=== PATIENT | female | born 1960 | race Caucasian/White ===

== ENCOUNTER 2022-06-18 01:31 | Day surgery (SDC) | payer OTHER, SELFPAY ==
[2022-06-02 13:58] VITALS: BMI 20.9
--- NOTE | 2022-06-18 11:28 | PM.HPGS ---
History of Present Illness History of Present Illness Consent: Risks, benefits, and alternatives have been discussed and questions answered. Patient agrees to proceed with procedure. Chief complaint: neoplasm screening, family hx colon Ca Narrative: Tonya Fuller is a 62 year old female referred for colon cancer screening. She has a family history of colon cancer in her mother. Review of Systems Review of Systems: All systems reviewed & are unremarkable except as noted in HPI and below PMFSH Family History Family History Sibling Patient's sister is in good health Patient's brother is in good health Mother Carcinoma of colon Patient's mother is Father Family history of coronary artery disease Social History Social History Smoking packs per day: 1 Smoking cigarettes per day: 20.0 Years smoked: 20 Smoking pack-years: 20.00 Smoking status: Former smoker Tobacco type: cigarettes Alcohol intake: never Substance use type: does not use Living arrangements: with family Spiritual care concerns: No Meds Home Medications and Allergies Home Medications Medication Instructions Recorded Confirmed Type ezetimibe 10 mg tablet (Zetia) 10 mg PO DAILY #90 tabs 05/13/22 06/02/22 Rx Adult One Daily Multivitamin 1 tablet PO DAILY 06/02/22 06/02/22 History vitamin E 400 unit tablet 400 unit PO DAILY 06/02/22 06/02/22 History metoprolol succinate 25 mg 25 mg PO DAILY #30 tabs 06/08/22 06/09/22 Rx tablet,extended release 24 hr Allergies Allergy/AdvReac Type Severity Reaction Status Date / Time Svmygdb-JWP-HuN Reductase AdvReac Intermediate muscle Verified 06/18/22 11:44 Inhibitor aches Exam Const: General: alert Orientation/consciousness: patient oriented x3 Resp: Auscultation: clear to auscultation bilaterally Cardio: Rhythm: regular rhythm GI: GI Palp: Yes Soft to palpation and No Tenderness to palpation present (GI) Neuro: General: patient oriented x3 Assessment and Plan Assessment and plan (1) Screening for colon cancer: Code(s): Z12.11 - Encounter for screening for malignant neoplasm of colon Status: Acute Assessment and Plan: Colonoscopy with possible biopsy or polypectomy or cautery or injection of substances.
[2022-06-18 11:44] VITALS: BP 126/53; PULSE 54; RESP 18; TEMP 36.5; O2SAT 100
[2022-06-18] MEDS: LACTATED RINGERS 1,000 ML 150 ML IV CONT (11:46)
--- NOTE | 2022-06-18 12:18 | WPDANESEPPF ---
Anes - Initial Pre Proc Eval Procedure: Operation Date: 06/18/22 12:30 Proposed Procedures p Screening Colonoscopy - Timo Chavira MD Date/Time: 06/18/22 12:18 Surgeon: Timo Chavira MD Pre Op Diagnosis: neoplasm screening, family hx colon Ca Patient Data Age: 62 Gender: F Height: 1.65 m Weight: 119.6 kg Last Vital Signs Temp 36.5 C 06/18/22 11:44 Pulse 54 L 06/18/22 11:44 Resp 18 06/18/22 11:44 BP 126/53 L 06/18/22 11:44 Pulse Ox 100 06/18/22 11:44 O2 Del Method Room Air 06/18/22 11:44 Allergies Allergy/AdvReac Type Severity Reaction Status Date / Time Giljvpt-AAC-XkC Reductase AdvReac Intermediate muscle Verified 06/18/22 11:44 Inhibitor aches Home Medications Medication Instructions Recorded Confirmed Type ezetimibe 10 mg tablet (Zetia) 10 mg PO DAILY #90 tabs 05/13/22 06/02/22 Rx Adult One Daily Multivitamin 1 tablet PO DAILY 06/02/22 06/02/22 History vitamin E 400 unit tablet 400 unit PO DAILY 06/02/22 06/02/22 History metoprolol succinate 25 mg 25 mg PO DAILY #30 tabs 06/08/22 06/09/22 Rx tablet,extended release 24 hr Patient hx anesthesia problems: none Family hx anesthesia problems: none Results Review: All pre-operative results and documents have been reviewed as part of the pre-operative evaluation. [facility] Past Medical History Medical History (Updated 06/18/22 @ 12:19 by Reno Rausch MD) Hyperlipidemia Hypertension Morbid obesity with BMI of 40.0-44.9, adult Family History Family History Sibling Patient's sister is in good health Patient's brother is in good health Mother Carcinoma of colon Patient's mother is Father Family history of coronary artery disease Social History Social History Smoking packs per day: 1 Smoking cigarettes per day: 20.0 Years smoked: 20 Smoking pack-years: 20.00 Smoking status: Former smoker Tobacco type: cigarettes Alcohol intake: never Substance use type: does not use Living arrangements: with family Spiritual care concerns: No Anes - Eval Final PreProcedure Day of Procedure 06/18/22 12:18 Patient weight: morbidly obese Heart: regular rate and rhythm Lungs: clear to auscultation and normal air movement Airway: Mallampati scale class II Neurological: alert and oriented Last oral intake: >/= 8 hours ASA classification: III Emergent: no Anesthetic plan: proceed Anesthesia type and monitoring: general GIVS Results Review: All pre-operative results and documents have been reviewed as part of the pre-operative evaluation. Informed Consent: The patient's anesthetic plan and its attendant risks and benefits were discussed with the patient/family/POA. Questions were solicited and answers provided to the satisfaction of the patient/family/POA.
[2022-06-18 12:54] VITALS: BP 97/54; PULSE 59; RESP 18; O2SAT 98
[2022-06-18 13:04] VITALS: BP 106/80; PULSE 65; RESP 20; O2SAT 97
[2022-06-18 13:14] VITALS: BP 118/59; PULSE 59; RESP 15; O2SAT 100
--- NOTE | 2022-08-05 13:31 | WPDAMENDMENT ---
Record Amendment Report Amendment This addendum is being added to clarify the patient's medical history of Morbid obesity with BMI of 40.0-44. adult found in the [facility] was documented in error and has been removed from this patient's record on 08/05/2021 at 13:33. This error is notated by Dr. Reno Rausch on the Anesthesia Progress note from 06/18/22 1222.
== END 2022-06-18 13:19 | disposition home or self-care (01) ==
PROVIDERS: PCP Family Medicine; Visit Provider Internal Medicine Gastroenterology
PROC: 0DJD8ZZ Inspection of Lower Intestinal Tract, Via Natural or Artificial Opening Endoscopic (ICD-10-PCS; CPT 45378; principal; 2022-06-18 12:30)
DX: Z12.11 Encounter for screening for malignant neoplasm of colon (principal); D12.5 Benign neoplasm of sigmoid colon; Z80.0 Family history of malignant neoplasm of digestive organs; E78.5 Hyperlipidemia, unspecified; I10 Essential (primary) hypertension; Z87.891 Personal history of nicotine dependence
CPT/HCPCS: 45385; 88305; J2704; J7120

== ENCOUNTER 2022-07-14 07:58 | Outpatient (CLI) | payer OTHER, SELFPAY ==
--- NOTE | ~2022-07-14 | MM_ITS ---
EXAMINATION: MM screening blake BI w thea HISTORY: Screening mammogram TECHNIQUE: Craniocaudal and mediolateral oblique 3-D tomosynthesis images were obtained and synthetic 2-D images were generated. Bilateral rotated lateral CC views. CAD analysis was submitted and interp reted. COMPARISON: No prior mammogram is available for comparison at this institution. BREAST PARENCHYMAL COMPOSITION: The breasts are heterogeneously dense, which may obscure small masses . FINDINGS: There is no evidence of suspicious mass, calcification, or architectural distortion to sugg est malignancy in either breast. There has been no suspicious interval change. IMPRESSION: 1. No mammographic evidence of malignancy. 2. Recommend routine screening mammography in one year. BI-RADS Category 1: Negative Reviewed, dictated and finalized at location [facility]
--- NOTE | ~2022-07-14 | DEXA_ITS ---
Bone Density Report Name: KARTHIK GRAYSON Age: 62 Sex: Female Ethnicity: White Date of : 1960 Indication: postmenopausal; screening for osteoporosis; height loss; Referring Provider: JOANN CHRISTY Study: Bone densitometry was performed. Exam Date: July 14, 2022 Accession number: [id number] Bone Density: Region BMD T-score Z-score Classification AP Spine(L1-L4) 0.677 -3.4 -1.9 Osteoporosis Femoral Neck (Left) 0.536 -2.8 -1.5 Osteoporosis Total Hip (Left) 0.632 -2.5 -1.6 Osteoporosis Femoral Neck (Right) 0.542 -2.8 -1.5 Osteoporosis Total Hip (Right) 0.629 -2.6 -1.6 Osteoporosis Total Hip Mean 0.630 -2.6 -1.6 Osteoporosis World Health Organization criteria for BMD impression classify patients as: Normal (T-score at or above -1.0), Osteopenia (T-score between -1.0 and -2.5), or Osteoporosis (T-score at or below -2.5). 10-year Fracture Risk: FRAX not reported because: Some T-score for Spine Total or Hip Total or Femoral Neck at or below -2.5 Clinical Information Provided by Patient: Patient maximum height was 66 Menopause Age: 54 Drinks caffeinated beverages Onset of menses at age 15 Number of children 6 Impression: The patient has osteoporosis, based on the Total Spine T-score. Discussion: INCREASED RISK OF FRACTURE. BONE DENSITY IS UNDESIRABLY LOW AT ONE OR MORE SKELETAL SITES, CONSISTENT WITH POSTMENOPAUSAL OSTEOPOROSIS. This patient's lowest T-score meets the World Health Organization's (WHO) criteria for osteoporosis at one or more sites (T-score -2.5 or below). In untreated patients, the risk of osteoporotic fracture increases approximately two-fold for each 1.0 SD decrease in T-score. Low bone density is not the only risk factor for fracture; also consider factors such as patient's age, frailty or poor health, risk of falling, risk of injury, previous osteoporotic fracture, family history of osteoporosis, cigarette smoking, low body weight, etc. Not everyone with low bone mineral density has osteoporosis; osteomalacia and other metabolic bone disorders should also be considered. Patients who have osteoporosis should be evaluated for specific diseases and conditions (secondary causes) that may cause or contribute to bone loss. The [place] Association of Clinical Endocrinologists (AACE) and National Osteoporosis Foundation (NOF) recommend pharmacologic intervention for all postmenopausal women whose T-score is in this range. The patient should follow a healthful lifestyle (good nutrition with adequate calcium and vitamin D, and appropriate weight-bearing exercise). Follow-Up: Consider a repeat BMD and Vertebral Fracture Assessment (VFA) exam in 2 years or sooner if medically necessary, to reassess this patient's status. Reported by: KEN on 07/14/2022 8:52:00 AM.
== END 2022-07-14 07:59 | disposition home or self-care (01) ==
PROVIDERS: PCP Family Medicine; Visit Provider Physician Assistant Medical
DX: Z12.31 Encounter for screening mammogram for malignant neoplasm of breast (principal); Z78.0 Asymptomatic menopausal state; Z13.820 Encounter for screening for osteoporosis; M81.0 Age-related osteoporosis without current pathological fracture
CPT/HCPCS: 77063; 77067; 77080

== ENCOUNTER 2022-08-20 08:27 | Outpatient (CLI) | payer OTHER, SELFPAY ==
--- NOTE | 2022-08-20 08:33 | EST_ITS ---
Patient Info Name: Tonya Fuller Age: 62 years : 1960 Gender: Female Ht: 65 in Wt: 122 lbs BSA: 1.59 m2 HR: 47 bpm BP: 189 / 114 mmHg Technical Quality: Good Exam Date: 08/20/2022 8:59 AM Exam Location: [facility] Pulmonary Patient Status: Outpatient Admit Date: 08/20/2022 Staff Ordering Physician: Jaime Ambrosio DO Business Process Associate: Radha Santoro RDCS Attending Provider: Referring Physician: Hebert SERRANO; Exercise Technologist: Zhanna Back CT Exercise Physician: Jaime Ambrosio DO Exam Type: CA stress echo Study Info Indications - DYSPNEA Treadmill exercise stress echocardiogram is performed. Summary 1. 1. Abnormal Palomo exercise stress test for ischemic ST changes by ECG criteria. 2. 2. Reduced functional capacity, achieving 6.5 METs of workload. 3. 3. Baseline hypertension. 4. 4. Appropriate HR response to exercise. 5. 5. Appropriate HR recovery at 1 minute post exercise. 6. 6. Abnormal stress echocardiogram suggesting ischemia primarily in the distribution of left circumflex artery. Stress Echo Findings Left Ventricle Subtle anterior wall hypokinesis with systole. Entire lateral wall hypokinesis with systole. Left Ventricle Normal LV systolic function, no wall motion abnormality. Protocol: Palomo Stress ECG Details Stage: REST Duration (min): 2 min : 3 sec Speed (mph): 0.0 Grade (%): 0 HR (bpm): 55 SBP (mmHg): 169 DBP (mmHg): 77 METS: --- Stage: REST Duration (min): 12 min : 6 sec Speed (mph): 0.0 Grade (%): 0 HR (bpm): 55 SBP (mmHg): 169 DBP (mmHg): 77 METS: --- Stage: STAGE 1 Duration (min): 1 min : 0 sec Speed (mph): 1.7 Grade (%): 10 HR (bpm): 97 SBP (mmHg): 169 DBP (mmHg): 77 METS: --- Stage: STAGE 1 Duration (min): 2 min : 0 sec Speed (mph): 1.7 Grade (%): 10 HR (bpm): 130 SBP (mmHg): 169 DBP (mmHg): 77 METS: --- Stage: STAGE 1 Duration (min): 3 min : 0 sec Speed (mph): 1.7 Grade (%): 10 HR (bpm): 144 SBP (mmHg): 189 DBP (mmHg): 114 METS: --- Stage: STAGE 2 Duration (min): 1 min : 0 sec Speed (mph): 2.5 Grade (%): 12 HR (bpm): 152 SBP (mmHg): 189 DBP (mmHg): 114 METS: --- Stage: STAGE 2 Duration (min): 1 min : 3 sec Speed (mph): 0.0 Grade (%): 0 HR (bpm): 152 SBP (mmHg): 189 DBP (mmHg): 114 METS: --- Stage: RECOVERY Duration (min): 0 min : 56 sec Speed (mph): 0.0 Grade (%): 0 HR (bpm): 123 SBP (mmHg): 189 DBP (mmHg): 114 METS: --- Stage: RECOVERY Duration (min): 1 min : 57 sec Speed (mph): 0.0 Grade (%): 0 HR (bpm): 104 SBP (mmHg): 167 DBP (mmHg): 93 METS: --- Stage: RECOVERY Duration (min): 2 min : 56 sec Speed (mph): 0.0 Grade (%): 0 HR (bpm): 95 SBP (mmHg): 186 DBP (mmHg): 91 METS: --- Stage: RECOVERY Duration (min): 3 min : 57 sec Speed (mph): 0
== END 2022-08-20 08:28 | disposition home or self-care (01) ==
PROVIDERS: PCP Family Medicine; Visit Provider Internal Medicine Cardiovascular Disease
DX: R06.09 Other forms of dyspnea (principal)
CPT/HCPCS: 93351

== ENCOUNTER 2022-09-01 03:08 | Day surgery (SDC) | payer OTHER, SELFPAY ==
[2022-08-31 11:49] VITALS: BMI 20.8
[2022-09-01] VITALS (15 sets, daily range): BP systolic 115–161; BP diastolic 61–87; PULSE 56–85; RESP 12–24; TEMP 36.6; O2SAT 97–100; BMI 20.3
[2022-09-01 09:13] LABS: Basophils Percent Auto 0.8 % (0.2-1.2); Eosinophils Absolute Auto 0.1 K/mm3 (0-0.3); Eosinophils Percent Auto 1.8 % (0-4.4); Hematocrit 44.4 % (37.0-47.0); Hemoglobin 14.9 g/dL (12.0-15.0); Lymphocytes Absolute Auto 1.48 K/mm3 (0.9-3.2); Lymphocytes Percent Auto 29.1 % (18.3-44.2); Mean Corpuscular HGB Conc 33.6 g/dl (32-36); Mean Corpuscular Hemoglobin 29.4 pg (26-34); Mean Corpuscular Volume 87.7 fl (80-100); Mean Platelet Volume 11.9 fl (7.4-10.4); Monocytes Absolute Auto 0.3 K/mm3 (0.1-0.6); Monocytes Percent Auto 5.7 % (2.6-8.5); Neutrophils Absolute Auto 3.2 K/mm3 (1.3-6.7); Neutrophils Percent Auto 62.6 % (45.5-73.1); Platelet Count Result 243 k/mm3 (150-375); Red Blood Count 5.06 M/mm3 (4.2-5.4); Red Cell Distribution Width 11.8 % (11.5-14.5); White Blood Count 5.1 K/mm3 (4.5-10.0)
[2022-09-01 09:23] LABS: Anion Gap 9 mmol/L (8-16); Blood Urea Nitrogen 19 mg/dL (7-17); Calcium 9.3 mg/dL (8.4-10.2); Carbon Dioxide 26 mmol/L (22-30); Chloride 106 mmol/L (98-107); Estimated CRCL calculation 74 ml/min; Estimated Glomerular Filt Rate > 60; Glucose 95 mg/dL (65-110); Potassium 4.2 mmol/L (3.4-5.0); Sodium 141 mmol/L (137-145)
--- NOTE | 2022-09-01 10:47 | WPDHPUPDATE1 ---
History and Physical Update Update Date/Time: 09/01/22 10:47 History and Physical has been reviewed, including an updated exam of the patient. There are NO changes in the patient's condition. Risks, benefits, and alternatives have been discussed and questions answered. Patient agrees to proceed with procedure.
--- NOTE | 2022-09-01 10:47 | WPDMODSED ---
Moderate Sedation Note-Pt Data Patient Data Diagnosis: Abnormal stress test Present Complaint: Abnormal stress test Procedure to be performed/Plan: Coronary angiography, LHC, +/- PCI Allergies Allergy/AdvReac Type Severity Reaction Status Date / Time Vufdhia-EJZ-XcI Reductase AdvReac Intermediate muscle Verified 09/01/22 09:05 Inhibitor aches Home Medications Medication Instructions Recorded Confirmed Type vitamin E 400 unit tablet 400 unit PO DAILY 06/02/22 08/31/22 History lisinopril 5 mg tablet 5 mg PO DAILY 07/28/22 08/31/22 History ezetimibe 10 mg tablet (Zetia) 10 mg PO DAILY #90 tabs 08/04/22 08/31/22 Rx aspirin 81 mg tablet,delayed 81 mg PO DAILY 08/20/22 08/31/22 History release (Adult Aspirin Regimen) pravastatin 20 mg tablet 20 mg PO DAILY #30 tabs 08/20/22 08/31/22 Rx Collagen Powder 6.6 g PO DAILY 08/31/22 08/31/22 History calcium-vitamin D3 1 tablet PO DAILY 08/31/22 08/31/22 History coQ10 (ubiquinol) 100 mg capsule 100 mg PO DAILY 08/31/22 08/31/22 History multivitamin 1 tablet PO DAILY 08/31/22 08/31/22 History Current Medications: Active Medications Sodium Chloride (Normal Saline Iv) 500 mls @ 100 mls/hr IV CONT .Q5H [place] Sedation/Anesthesia: No previous sedation/anesthesia problems (including family history). [facility] Past Medical History Medical History BMI 20.0-20.9, adult Colonoscopy planned Hyperlipidemia Hypertension Family History Family History Sibling Patient's sister is in good health Patient's brother is in good health Mother Carcinoma of colon Patient's mother is Father Family history of coronary artery disease Acute myocardial infarction Sibling Heart disease COPD (chronic obstructive pulmonary disease) Social History Social History Smoking packs per day: 1 Smoking cigarettes per day: 20.0 Years smoked: 20 Smoking pack-years: 20.00 Smoking status: Former smoker Tobacco type: cigarettes Second hand tobacco smoke exposure: No Additional smoking assessment comments: quit around 2013 Alcohol intake: never Substance use: never Substance use type: does not use Lack of Transportation: No Lack of Food: Never True Current Housing: I Have Housing Concerned About Future Housing: No Difficulty Paying Gas/Electric Bills: No Difficulty Paying for Meds: No Currently Unemployed: No Education: High School Diploma/GED Difficulty w/ Childcare or Family Care: No Living arrangements: with family Additional living arrangements comments: lives with daughter and 2 grandkids Occupation/Education: occupation Additional occupation/education comments: [employer] Gender identity (if verbalized by the patient): Female Spiritual care concerns: No Mod Sed Physical Exam Physical Exam Pre Procedural Exam: Normal: Appearance, Lungs, Heart Rate, Heart Rhythm, Neuro Exam, Abdomen, Extremities and Skin Hours since solid foods: 12 Hours since liquid intake: 8 Mallampati Classification: class II Internal Medicine - PN: Obj Da Vital Signs Vital Signs: Vital Signs - 24 hr 09/01/22 09:06 Temperature 36.6 C Pulse Rate 65 Respiratory Rate 24 H Blood Pressure 153/67 H Pulse Oximetry 100 Oxygen Delivery Room Air Meds/Results Medications: Active Medications Generic Name Dose Route Start Last Admin Trade Name Freq PRN Reason Stop Dose Admin Sodium Chloride 500 mls @ 100 mls/hr 09/01/22 08:30 Normal Saline Iv IV CONT .Q5H LAKEISHA Labs 09/01/22 09:03 09/01/22 09:03 Labs: Laboratory Results - last 24 hr 09/01/22 09/01/22 09:03 09:03 WBC 5.1 RBC 5.06 Hgb 14.9 Hct 44.4 MCV 87.7 MCH 29.4 MCHC 33.6 RDW 11.8 Plt Count 243 MPV 11.9 H Immature Gran % (Auto) 0.0 Ne
--- NOTE | 2022-09-01 10:48 | WPDCARDPROC ---
Cardiac Cath Procedure Note Date of procedure:: 09/01/22 Performing physician:: CATHETERIZATION LABORATORY REPORT Procedure Date: 09/01/2022 Hand Router Operator: Madison Lou M.D., [facility]? Referring Physician: Dr. Ambrosio ? Anesthesia: Versed and Fentanyl were ordered and given in my presence at 11:00, procedure ended at 12:10. Supervision of nurse monitored moderate sedation with Versed and Fentanyl was provided for 70 minutes. Total of Versed 3mg and Fentanyl 50mcg were administered by the Radiation Protection Engineer RN Mitra Joel. Pre-op Diagnosis: Coronary artery disease Post-op Diagnosis: 1. Mild coronary artery disease of LAD and LCX. Moderate stenosis in the mid RCA. Attempted IFR of the RCA lesion, but IFR was not working despite multiple attempts at troubleshooting (likely system calibration issue per the Martha device rep). Recommend medical management for her coronary artery disease (of note, her stress echo did not show ischemia in the RCA territory). 2. Left ventricular end-diastolic pressure of 14mmHg Procedure(s): 1. Moderate sedation 2. Ultrasound-guided access of the right radial artery 3. Coronary angiography 4. Left heart cath 5. Attempted IFR of the mid RCA lesion. Access Site: Right radial artery Brief History and Clinical Indications: Patient is a 62-year-old female who is referred for coronary angiography for abnormal stress test which showed ischemia in the LCX territory. All risks, benefits and alternatives to left heart catheterization with or without percutaneous coronary intervention was discussed at length with the patient. Risk of complications including but not limited to bleeding, infection, arrhythmia, stroke, worsening kidney function, blood loss, groin hematoma, limb loss, emergency coronary artery bypass grafting, and even were discussed with the patient and all questions were answered. The patient understood and wished to proceed. Time out called, patient name, date of , medical record number, allergies, procedure performed, identify Hand Router Operator, patient and staff member concurred with accurate data, procedure carried on. Findings: LEFT HEART CATHETERIZATION FINDINGS: 1. Left main: The left main coronary artery is widely patent without any significant obstructive disease. 2. Left anterior descending: Proximal LAD with mild luminal irregularities. There is a 30-40% mild stenosis in the mid-distal LAD. Distal LAD with mild luminal irregularities. Diagonal branches with mild luminal irregularities. 3. Left circumflex: Proximal LCX with mild luminal irregularities. There is a mild 10-20% stenosis in the mid LCX. Remaining LCX with mild diffuse disease. OM1 branch is a small caliber vessel with mild diffuse disease. OM-2 is a very small caliber branch with diffuse disease. OM-3 with mild luminal irregularities. 4. Right coronary artery: The RCA is the dominant vessel. Proximal RCA with mild luminal irregularities. There is a focal 50-70% moderate stenosis in the mid RCA. Distal RCA with mild luminal irregularities. 5. Left ventricle: A. End-diastolic pressure 14mmHg. B. LV gram deferred. C. No significant gradient across aortic valve on catheter pullback. Description of Procedure: Informed consent signed and placed in the chart. Patient transferred to laborer pullet farm room. Prepped and draped in usual sterile fashion. 2% lidocaine injected subcutaneously in right wrist area. 22-gauge venipuncture catheter used to access the right radial artery with the Seldinger technique. 6-FR slender sheath placed in right radial artery. Nitroglycerine and Verapamil were given intraarterial through the sheath. Versacore wire advanced under fluoroscopy 5F FL 4 diagnostic catheter engaged Left Main Coronary Artery. 5F FR 4 diagnostic catheter engaged Right Coronary Artery Multiple orthogonal angiogram obtained and reviewed Decision made to proceed with IFR evaluation of mid RCA lesion. Bolus of Bivalirudin was admi
== END 2022-09-01 16:36 | disposition home or self-care (01) ==
PROVIDERS: PCP Family Medicine; Visit Provider Internal Medicine
PROC: 4A023N7 Measurement of Cardiac Sampling and Pressure, Left Heart, Percutaneous Approach (ICD-10-PCS; CPT 93452; principal; 2022-09-01 10:00)
DX: I25.10 Atherosclerotic heart disease of native coronary artery without angina pectoris (principal); R94.39 Abnormal result of other cardiovascular function study; I10 Essential (primary) hypertension; E78.5 Hyperlipidemia, unspecified; Z79.82 Long term (current) use of aspirin; Z87.891 Personal history of nicotine dependence
CPT/HCPCS: 36415; 80048; 85025; 93458; A9270; C1769; C1887; C1894; J0583; J1644; J2250; J3010; J7040

== ENCOUNTER 2022-10-01 13:26 | Emergency (ER) | payer OTHER, SELFPAY ==
--- NOTE | ~2022-10-01 | CT_ITS ---
EXAMINATION: CT BRAIN W/O DATE: 10/01/2022 17:07 INDICATION: Weakness TECHNIQUE: Computed tomography (CT) of the head was performed without intravenous contrast. The dose- length product was 605.33 mGy-cm. Automated exposure control and iterative reconstruction technique were employed. COMPARISON: No prior studies for comparison. FINDINGS: There is mild generalized atrophy. Normal padgett-white differentiation. No acute intracranial hemorrhage, infarction, mass or mass effect. No ventriculomegaly or midline shift. Midline sagittal images demonstrate a normal corpus callosum, c raniovertebral junction and sella turcica. Basilar cisterns are patent. Paranasal sinuses and mastoids are pneumatized. No depressed skull fractures. There is intracranial a therosclerosis. IMPRESSION: 1. No acute intracranial abnormality. Reviewed, dictated and finalized at location A.
--- NOTE | ~2022-10-01 | XR_ITS ---
EXAMINATION: XR chest 2V 10/01/2022 14:15 INDICATION: Chest pain and lightheadedness. PROCEDURE: 2 view chest COMPARISON: 08/24/2013 FINDINGS: The lungs are clear. The cardiomediastinal silhouette is within normal limits. There are no pleural effusions. There is no pneumothorax suspected. Prominent bilateral nipple shadows. The l ungs are hyperinflated which is consistent with, but not diagnostic of chronic obstructive pulmonary disease. IMPRESSION: 1: NO ACUTE CARDIOPULMONARY DISEASE. Reviewed, dictated and finalized at location A.
[2022-10-01 13:35] VITALS: BP 169/88; PULSE 81; RESP 18; TEMP 36.7; O2SAT 100
--- NOTE | 2022-10-01 13:36 | ECG_ITS ---
Measurements Intervals [place] Rate: 72 P: 66 [place]: 146 QRS: 67 QRSD: 85 T: 88 QT: 390 QTc: 430 Interpretive Statements SINUS RHYTHM BORDERLINE ST ABNORMALITY- ANTEROLAT/INF LEADS BASELINE ARTIFACT- I, II, III, AVR, AVL, AVF, V1-V6 BORDERLINE ECG NO PREVIOUS ECG AVAILABLE FOR COMPARISON Electronically Signed On 10-01-2022 14:56:50 CDT by Jaime Ambrosio D.O.
[2022-10-01 13:50] LABS: Basophils Percent Auto 0.7 % (0.2-1.2); Eosinophils Absolute Auto 0.1 K/mm3 (0-0.3); Eosinophils Percent Auto 1.5 % (0-4.4); Hematocrit 44.7 % (37.0-47.0); Hemoglobin 15.6 g/dL (12.0-15.0); Immature Granulocyte Absolute 0.01 K/mm3 (0.00-0.031); Immature Granulocyte Percent A 0.2 % (0-0.5); Lymphocytes Absolute Auto 1.36 K/mm3 (0.9-3.2); Lymphocytes Percent Auto 25.1 % (18.3-44.2); Mean Corpuscular HGB Conc 34.9 g/dl (32-36); Mean Corpuscular Hemoglobin 29.8 pg (26-34); Mean Corpuscular Volume 85.3 fl (80-100); Monocytes Absolute Auto 0.3 K/mm3 (0.1-0.6); Monocytes Percent Auto 5.4 % (2.6-8.5); Neutrophils Absolute Auto 3.6 K/mm3 (1.3-6.7); Neutrophils Percent Auto 67.1 % (45.5-73.1); Platelet Count Result 248 k/mm3 (150-375); Red Blood Count 5.24 M/mm3 (4.2-5.4); Red Cell Distribution Width 11.8 % (11.5-14.5); White Blood Count 5.4 K/mm3 (4.5-10.0)
[2022-10-01] MEDS: ASPIRIN 81 MG CHEWABLE TABLET 324 MG PO (13:50)
--- NOTE | 2022-10-01 13:58 | ED.CHESTPAIN ---
HPI - Chest Pain General Chief Complaint: Chest Pain Stated Complaint: chest pain, fatigue Time Seen by Provider: 10/01/22 13:48 Source: patient Mode of arrival: ambulatory Limitations: no limitations History of Present Illness HPI narrative: Patient is a 62-year-old female with a history of coronary artery disease, hypertension, hyperlipidemia, osteoarthritis, presenting to the emergency department for evaluation of recurrent chest pain. Patient has a prolonged recent history including failed stress test and referred to Dr. Lou for interventional cardiology for cardiac catheterization. I reviewed the systems architecture analyst notes states that a balloon angioplasty was not able to be performed secondary to device malfunction. Patient then was discharged home with optimal medical management. Patient had recurrent chest pain and then went to [facility] and was admitted for an NSTEMI. Troponins were downtrending, thus they decided to proceed with medical management and follow-up with Dr. Moody in 2 weeks. Patient returns today for evaluation of left-sided chest pain that has been intermittent over the past 6 hours. Patient reports an aching sensation in the chest without radiation to the neck, jaw, back, shoulder. No associated numbness or weakness. No associated nausea though she did report feeling somewhat lightheaded and clammy. No ripping or tearing sensation in the flank. Patient denies lower extremity swelling, redness. No history of coagulopathy or DVT. Patient has been compliant with her medications without much improvement in her symptoms Per my review of cardiology notes: Roller Turner: 09/27-: Admission for NSTEMI [facility], seen by Dr. Moody, initiated on Diltiazem per record review 09/01/[address] Lou: LAD mid-distal with 30-40% stenosis, LCx mid 10-20% stenosis, RCA mid 50-70% stenosis. Electrophysiology:: 07/28/22 EKG: Sinus bradycardia at 51 bpm. 06/04/22 28 days event monitor: Sinus rhythm, HR range 38-128 bpm; average HR 59 bpm; 38 bpm was on 06/18/22 at 02:39; 1% PAC and 1% PVC, 1 1VT at 128 bpm lasting 4 beats on 06/07/22 at 06:06. Stress Tests:: 08/20/22 Stress echo: Abnormal with 2-[address] depression in inferior leads and V4-V6. Echo portion shows lateral wall hypokinesis and subtle anterior wall hypokinesis. Related Data Home Medications Medication Instructions Recorded Confirmed vitamin E 400 unit tablet 400 unit PO DAILY 06/02/22 09/09/22 aspirin 81 mg tablet,delayed 81 mg PO DAILY 08/20/22 09/09/22 release (Adult Aspirin Regimen) Collagen Powder 6.6 g PO DAILY 08/31/22 09/09/22 calcium-vitamin D3 1 tablet PO DAILY 08/31/22 09/09/22 coQ10 (ubiquinol) 100 mg capsule 100 mg PO DAILY 08/31/22 09/09/22 multivitamin 1 tablet PO DAILY 08/31/22 09/09/22 Allergies Allergy/AdvReac Type Severity Reaction Status Date / Time Bwqatsa-UKE-DoV Reductase AdvReac Intermediate muscle Verified 09/09/22 09:48 Inhibitor aches Review of Systems Review of Systems: CONSTITUTIONAL: Denies fever, chills, or sweats. EYES: Denies visual changes, redness, or discharge. ENT: Denies rhinorrhea, congestion, sore throat, or otalgia. CARDIOVASCULAR: Reports left-sided chest pain, denies palpitations or edema RESPIRATORY: Denies cough or dyspnea. GASTROINTESTINAL: Denies abdominal pain, nausea, vomiting, or diarrhea. GENITOURINARY: Denies dysuria or hematuria. SKIN: Denies rash or itching. MUSCULOSKELETAL: Denies back pain, joint pain, or myalgia. NEUROLOGIC: Denies headache, numbness, or weakness. [facility] Past Medical History Medical History BMI 20.0-20.9, adult Colonoscopy planned Hyperlipidemia Hypertension Family History Family History Sibling Patient's sister is in good health Patient's brother is in good health Mother Carcinoma of colon Patient's mother is dec
[2022-10-01 14:01] LABS: Prothrombin Time 12.7 Seconds (11.1-14.7)
[2022-10-01 14:02] LABS: Partial Thromboplastin Time 25.3 SECONDS (22.3-36.8)
[2022-10-01] MEDS: SODIUM CHLORIDE 0.9% IV 1,000 ML 999 ML IV CONT (14:29)
[2022-10-01 14:59] LABS: Alanine Aminotransferase 17 U/L (6-35); Albumin Level 4.5 g/dL (3.5-5.1); Alkaline Phosphatase 84 U/L (38-126); Anion Gap 5 mmol/L (8-16); Aspartate Amino Transferase 31 U/L (14-36); Bilirubin,Total 0.7 mg/dL (0.2-1.3); Blood Urea Nitrogen 13 mg/dL (7-17); Calcium 9.3 mg/dL (8.4-10.2); Carbon Dioxide 25 mmol/L (22-30); Chloride 101 mmol/L (98-107); Estimated CRCL calculation 65 ml/min; Estimated Glomerular Filt Rate > 60; Glucose 104 mg/dL (65-110); Lipase 52 U/L (23-300); Potassium 4.9 mmol/L (3.4-5.0); Sodium 131 mmol/L (137-145)
[2022-10-01 15:02] LABS: D Dimer 0.34 ug/mL (<0.48)
[2022-10-01 15:08] LABS: NT Pro B Type Natriuretic Pept 89 pg/mL (19.9-100); Troponin I < 0.012 ng/mL (0.000-0.034)
[2022-10-01 15:09] VITALS: BP 119/72; PULSE 60; RESP 13; O2SAT 100
[2022-10-01 16:24] VITALS: BP 131/64; PULSE 58; RESP 14; O2SAT 99
[2022-10-01 16:25] VITALS: PULSE 58
[2022-10-01 17:43] VITALS: BP 116/54; PULSE 55; RESP 14; O2SAT 98
[2022-10-01 17:51] LABS: Appearance Urine Clear (Clear); Bacteria Urine None Seen /hpf; Bilirubin Urine Negative (Negative); Blood Urine Negative (Negative); Color Urine Yellow (Yellow); Glucose Urine UA Negative (Negative); Ketones Urine Trace mg/dL (Negative); Leukocyte Esterase Ur Trace LEU/UL (Negative); Nitrate Urine Negative (Negative); Non Pathogenic Casts 0-2; Protein Urine Negative (Negative); RBC Urine 0-2 /hpf (0-2); Squamous Epithelial Cell Urine None seen /hpf (Few); Urobilinogen Urine 0.2 mg/dL (<2.0); WBC Urine 0-5 /hpf
[2022-10-01 18:03] LABS: Add Urine Microscopic? YES
[2022-10-01 18:11] LABS: Troponin I < 0.012 ng/mL (0.000-0.034)
[2022-10-01 19:12] VITALS: BP 108/72; PULSE 58; RESP 18; O2SAT 100
== END 2022-10-01 19:15 | disposition home or self-care (01) ==
PROVIDERS: Emergency Provider Emergency Medicine; PCP Family Medicine
DX: R07.89 Other chest pain (principal); I25.10 Atherosclerotic heart disease of native coronary artery without angina pectoris; I10 Essential (primary) hypertension; E78.5 Hyperlipidemia, unspecified; M19.90 Unspecified osteoarthritis, unspecified site; Z87.891 Personal history of nicotine dependence; R94.31 Abnormal electrocardiogram [ECG] [EKG]
CPT/HCPCS: 36415; 70450; 71046; 80053; 81001; 83690; 83880; 84484; 85025; 85380; 85610; 85730; 93005; 96360; 99284; A9270; J2405; J7030

== ENCOUNTER 2023-02-24 09:10 | Outpatient (CLI) | payer OTHER, MEDICAID, SELFPAY ==
--- NOTE | 2023-03-02 14:15 | WPDPFTINT ---
PFT Procedure Performed PFT Procedure Performed Spirometry with Pre/Post Bronchodilator Plethysmography (Lung Vol) Diffusing Cap (DLCO) Flow Vol Loop PFT Interpretation DOS: 02/24/2023 REQUESTING: Shannon Hinojosa PA-C REASON FOR TESTING: shortness of breath PULMONARY FUNCTION TESTS Repeatability of spirometry in the pre and post bronchodilator FEV1 maneuver is Grade B. Spirometry: FEV1 is 3.70 L, 108% predicted, normal. Pre bronchodilator FEV1 is 2.16 L, 81%, normal. FEV1/ FVC ratio is decreased, 58%, consistent with airflow obstruction. the FEF 25-75 is 1.16 L, 49% predicted, decreased. After bronchodilator, the FEV1 increases 4%, and the FVC decreases by 3%. The FEV1/ FVC ratio is 63%, still reduced consistent with airflow obstruction. After bronchodilator the FEF 25-75 increases by 24%, and this is 1.45 L, now in the normal range, 61% predicted. Lung volumes: Total lung capacity 5.65 L, 105%, normal. Residual volume 1.95 L, 93%, normal. RV/ TLC is 35%, normal. Airway resistance is normal. Diffusion: DLCO is 17.3, 77%, normal. DLCO /VA is 3.91, 90%, normal. Flow volume loop: There is subtle attenuation on both the inspiratory and expiratory limbs. This is not flattening. IMPRESSION: This study shows a mild obstructive ventilatory impairment with improvement after bronchodilator, especially significant in the small airways. Normal lung volumes and diffusion. There is no prior study for comparison. Leonila Benitez MD
--- NOTE | 2023-03-02 15:51 | WPDSIXMINUTE ---
Six Minute Walk Procedure Procedure Performed Pulmonary Stress Test (6 min walk) Six Minute Walk Six Minute Walk: DATE OF SERVICE: 02/24/2023 REQUESTING: Shannon Hinojosa PA-C REASON FOR TESTING: shortness of breath SIX MINUTE WALK This test was conducted per ATS guidelines. The initial saturation was 98%, and initial heart rate was 64 beats per minute. The patient walked without stopping, completing 1000 feet/304.8 meters. The saturation at the end of testing was 97%, and the heart rate was 72 beats per minute. IMPRESSION: This is a normal study. The patient did not require supplemental oxygen with exertion. Leonila Benitez MD
== END 2023-02-24 09:11 | disposition home or self-care (01) ==
LOC: ANHPFT 09:11
PROVIDERS: PCP Family Medicine; Visit Provider Physician Assistant
DX: J44.9 Chronic obstructive pulmonary disease, unspecified (principal)
CPT/HCPCS: 94060; 94726; 94729

== ENCOUNTER 2023-06-22 14:25 | Emergency (ER) | payer BC, SELFPAY ==
--- NOTE | ~2023-06-22 | XR_ITS ---
EXAMINATION: XR chest 2V 06/22/2023 14:46 INDICATION: Intermittent chest tightness PROCEDURE: 2 view chest COMPARISON: 10/01/2022 FINDINGS: The lungs are clear. The cardiomediastinal silhouette is within normal limits. There are no pleural effusions. There is no pneumothorax suspected. Prominent bilateral nipple shadows. The l ungs are hyperinflated which is consistent with, but not diagnostic of chronic obstructive pulmonary disease. IMPRESSION: 1: NO ACUTE CARDIOPULMONARY DISEASE. Reviewed, dictated and finalized at location L. TENDER
--- NOTE | 2023-06-22 14:26 | ECG_ITS ---
Measurements Intervals [place] Rate: 75 P: 61 NM: 166 QRS: 63 QRSD: 82 T: 77 QT: 392 QTc: 438 Interpretive Statements SINUS RHYTHM POSSIBLE LEFT ATRIAL ENLARGEMENT [-0.1mV P WAVE IN V1/V2] COMPARED TO ECG 10/01/2022 13:35:49 NO SIGNIFICANT CHANGES Electronically Signed On 06-22-2023 20:18:42 HAIR TINTER by Melani Alanis M.D.
[2023-06-22 14:29] VITALS: BP 186/96; PULSE 75; RESP 16; TEMP 36.6; O2SAT 100
--- NOTE | 2023-06-22 14:35 | ED.CHESTPAIN ---
HPI - Chest Pain General Chief Complaint: Chest Pain <JAZMIN Diaz Last Filed: 06/22/23 14:40> Stated Complaint: chest tightness <JAZMIN Diaz Last Filed: 06/22/23 14:40> Time Seen by Provider: 06/22/23 20:42 <JAZMIN Diaz Last Filed: 06/22/23 14:40> Source: patient <JAZMIN Diaz Last Filed: 06/22/23 14:40> Mode of arrival: ambulatory <JAZMIN Diaz Last Filed: 06/22/23 14:40> Limitations: no limitations <JAZMIN Diaz Last Filed: 06/22/23 14:40> History of Present Illness HPI narrative: Patient is a 63 y/o female, with PMH of HTN/HLD, who presents to the ED with c/o chest tightness. Patient reports she developed tightness across her chest this morning while sitting down watching TV. She states the episode lasted for approximately 5 minutes before resolving on its own. She then developed another episode of chest tightness around 1:00 p.m., which was associated with lightheadedness and diaphoresis. She states this episode was much more severe and lasted approximately 1 hour before resolving. She does report persistent mild discomfort currently. Denies shortness breath, pleuritic pain, lower extremity pain or swelling, fevers, recent cough or cold sx's, N/V. Patient sees Dr. Freire with Cardiology and last saw him 2 weeks ago. She had a chest CTA performed at that time and was told she had a 70% blockage. No previous stenting. <JAZMIN Diaz Last Filed: 06/22/23 14:40> Patient is a 63 y/o female, with PMH of HTN/HLD, who presents to the ED with c/o chest tightness, 5 out of 10 in severity. Patient reports she developed tightness across her chest at 1pm while at rest. It lasted 1 hour but she states this has not recurred since being in the ED. She felt like she had a hot flash, flushed but temperature was 98 at the time. Endorses a cough at night. Episode was associated with lightheadedness and diaphoresis. Denies shortness breath, pleuritic pain, lower extremity pain or swelling, fevers, or cold sx's/congestion, N/V. Patient sees Dr. Freire with Cardiology and last saw him 2 weeks ago. She had a chest CTA performed at that time and was told she had a 70% blockage (on the right? and a 0-25% blockage on the left ?). She has had 2 prior cardiac catheterizations (one in August 2022 and one in September at [facility]). No previous stenting. Her Ranexa/ranolazine dosage for angina was increased from 500mg BID to 1000mg bid. She has been told she has mild COPD. <Brinda Roberson MD - Last Filed: 06/24/23 16:14> Related Data Home Medications: Home Medications Medication Instructions Recorded Confirmed aspirin 81 mg tablet,delayed 81 mg PO DAILY 08/20/22 01/26/23 release (Adult Aspirin Regimen) Collagen Powder 6.6 g PO DAILY 08/31/22 01/26/23 coQ10 (ubiquinol) 100 mg capsule 100 mg PO DAILY 08/31/22 01/26/23 multivitamin 1 tablet PO DAILY 08/31/22 01/26/23 ranolazine 500 mg tablet,extended 500 mg PO Q12H 02/26/23 release,12 hr <Nusrat Baez PA-C - Last Filed: 06/22/23 14:40> Allergies/Adverse Reactions: Allergies Allergy/AdvReac Type Severity Reaction Status Date / Time Iylalgj-CTC-VvU Reductase AdvReac Intermediate muscle Verified 03/16/23 10:14 Inhibitor aches <Nusrat Baez PA-C - Last Filed: 06/22/23 14:40> Review of Systems Review of Systems: CONSTITUTIONAL: See HPI. CARDIOVASCULAR: See HPI. RESPIRATORY: Denies cough or dyspnea. GASTROINTESTINAL: Denies abdominal pain, nausea, vomiting. MUSCULOSKELETAL: Denies back pain, joint pain, or myalgia. NEUROLOGIC: See HPI. <Nusrat Baez PA-C - Last Filed: 06/22/23 14:40> All systems reviewed & are unremarkable except as noted in HPI and below <Nusrat Baez PA-C - Last Filed: 06/22/23 14:40> [facility] Past Medical History Medical History: Medical Histor
[2023-06-22 14:55] LABS: Alanine Aminotransferase 16 U/L (6-35); Albumin Level 4.4 g/dL (3.5-5.1); Alkaline Phosphatase 91 U/L (38-126); Anion Gap 8 mmol/L (8-16); Aspartate Amino Transferase 25 U/L (14-36); Basophils Percent Auto 0.8 % (0.2-1.2); Bilirubin,Total 0.5 mg/dL (0.2-1.3); Blood Urea Nitrogen 14 mg/dL (7-17); Calcium 9.4 mg/dL (8.4-10.2); Carbon Dioxide 27 mmol/L (22-30); Chloride 91 mmol/L (98-107); Eosinophils Absolute Auto 0.1 K/mm3 (0-0.3); Eosinophils Percent Auto 1.5 % (0-4.4); Estimated CRCL calculation 59 ml/min; Estimated Glomerular Filt Rate > 60; Glucose 103 mg/dL (65-110); Hematocrit 39.1 % (37.0-47.0); Hemoglobin 13.3 g/dL (12.0-15.0); Immature Granulocyte Absolute 0.01 K/mm3 (0.00-0.031); Immature Granulocyte Percent A 0.3 % (0-0.5); Lipase 72 U/L (23-300); Lymphocytes Absolute Auto 0.91 K/mm3 (0.9-3.2); Lymphocytes Percent Auto 22.9 % (18.3-44.2); Mean Corpuscular Hemoglobin 30.1 pg (26-34); Mean Corpuscular Volume 88.5 fl (80-100); Mean Platelet Volume 11.3 fl (7.4-10.4); Monocytes Absolute Auto 0.2 K/mm3 (0.1-0.6); Monocytes Percent Auto 5.8 % (2.6-8.5); Neutrophils Absolute Auto 2.7 K/mm3 (1.3-6.7); Neutrophils Percent Auto 68.7 % (45.5-73.1); Platelet Count Result 257 k/mm3 (150-375); Potassium 4.4 mmol/L (3.4-5.0); Red Blood Count 4.42 M/mm3 (4.2-5.4); Red Cell Distribution Width 11.1 % (11.5-14.5); Sodium 126 mmol/L (137-145)
[2023-06-22 15:01] LABS: INR 0.9; Partial Thromboplastin Time 27.4 SECONDS (22.3-36.8); Prothrombin Time 12.6 Seconds (11.1-14.7)
[2023-06-22 15:07] LABS: Troponin I < 0.012 ng/mL (0.000-0.034)
[2023-06-22] MEDS: SODIUM CHLORIDE 0.9% IV 1,000 ML 999 ML IV CONT (21:06)
[2023-06-22 21:35] LABS: Troponin I < 0.012 ng/mL (0.000-0.034)
[2023-06-22 22:10] VITALS: BP 148/84; PULSE 64; RESP 14; O2SAT 100
== END 2023-06-22 22:11 | disposition home or self-care (01) ==
PROVIDERS: Emergency Medicine; Emergency Provider Student in an Organized Health Care Education/Training Program; PCP Family Medicine
DX: R07.89 Other chest pain (principal); E87.1 Hypo-osmolality and hyponatremia; I10 Essential (primary) hypertension; E78.5 Hyperlipidemia, unspecified; J44.9 Chronic obstructive pulmonary disease, unspecified; Z87.891 Personal history of nicotine dependence; Z79.82 Long term (current) use of aspirin; R94.31 Abnormal electrocardiogram [ECG] [EKG]
CPT/HCPCS: 36415; 71046; 80053; 83690; 84484; 85025; 85610; 85730; 93005; 96360; 99284; J7030

== ENCOUNTER 2024-11-28 08:47 | Outpatient (CLI) | payer OTHER, SELFPAY ==
--- NOTE | ~2024-11-28 | MM_ITS ---
EXAMINATION: MM screening blake BI w thea HISTORY: Screening mammogram TECHNIQUE: Craniocaudal and mediolateral oblique 3-D tomosynthesis images were obtained and synthetic 2-D images were generated. CAD analysis was submitted and interpreted. COMPARISON: 07/14/2022 BREAST PARENCHYMAL COMPOSITION:Dense: The breasts are heterogeneously dense, which may obscure small masses. FINDINGS: No suspicious mass, calcification, or architectural distortion are identified in either leana ast to suggest malignancy. There has been no suspicious interval change. IMPRESSION: No mammographic evidence of malignancy. Recommend routine screening mammography in one year. BI-RADS Category 1: Negative Reviewed, dictated and finalized at location .
--- OUTSIDE RECORDS SUMMARY | 2024-11-28 08:53 | XMS_ITS | CONTINUITY OF CARE DOCUMENT ---
Author Name lucila gaytan Address Unknown Organization [facility] Address [address] [place] [address] Phone [phone] Care Team Providers Care Cosmetic Account Coordinator Name Role Phone Rolan Freire MD Unavailable [phone] ABBY TAI, MARCUS F Unavailable ABBY TAI, MARCUS F Unavailable PROBLEMS Condition Status Date Provider Notes Hyperkalemia active Joie Machado Cardiology examination completed 4 - Rolan Freire MD Lightheadedness active Rolan Freire MD Shortness of breath active Rolan Patel Chest pain-type to be determined active Rolan Freire MD Hyponatremia active Rolan Freire MD Cardiology examination active Rolan wallace MD CAD active Rolan Freire MD ENCOUNTERS Date Type Provider Location Encounter Diag nosis - In-person encounter Office Visit Rolan Freire MD [facility] Cardiology examinationCAD - In-person encounter Office Visit Rolan Freire MD [facility] - In-person encounter Office Visit Rolan Freire MD [facility] Hyponatremia - In-person encounter Office Visit Rolan Freire MD [facility] Office - In-person encounter Office Visit Rolan Freire MD [facility] Cardiology examination - In-person encounter Office Visit Rolan Freire MD [facility] - In-person encounter Office Visit Rolan Freire MD [facility] LightheadednessShortness of breathChest pain-type to be determined VITAL SIGNS Date Observation Value Provider Body Mass Index (Ratio) 21.13 kg/m2 Sabino Freire MD blood pressure, diastolic 72 mm[Hg] Li nkLog blood pressure, systolic 118 mm[Hg] Ariela og blood pressure, cuff size regular Ta bitha Camp blood pressure, diastolic 72 mm[Hg] Ta bitha Camp blood pressure, systolic 118 mm[Hg] Tab itha Camp pulse rate 73 /min Sabina Camp oxygen saturation, oximetry 99 % Sabina Camp weight E&M 127 [lb_av] Sabina Camp respiratory rate E&M 12 /min Sabina Camp height E&M 65 [in_i] Sabina Camp Body Mass Index (Ratio) 20.13 kg/m2 Sabino Freire MD blood pressure, diastolic 82 mm[Hg] Li nkLog blood pressure, systolic 128 mm[Hg] Ariela kLog blood pressure, cuff size regular Fa ith Camp blood pressure, diastolic 82 mm[Hg] Fa ith Camp blood pressure, systolic 128 mm[Hg] [facility] pulse rate 68 /min Melissa Camp oxygen saturation, oximetry 98 % Melissa Camp respiratory rate E&M 16 /min Melissa M iller weight E&M 121 [lb_av] [facility] height E&M 65 [in_i] [facility] Body Mass Index (Ratio) 19.97 kg/m2 Sabino Freire MD blood pressure, diastolic 110 mm[Hg] Li nkLogic blood pressure, systolic 140 mm[Hg] Ariela kLogic blood pressure, cuff size regular Fa [facility] blood pressure, diastolic 110 mm[Hg] Fa [facility] blood pressure, systolic 140 mm[Hg] [facility] oxygen saturation, oximetry 98 % [facility] respiratory rate E&M 15 /min [facility] pulse rate 78 /min [facility] weight E&M 120 [lb_av] [facility] height E&M 65 [in_i] [facility] Body Mass Index (Ratio) 19.63 kg/m2 Sabino Freire MD pulse rate 96 /min Kalpana Justina respiratory rate E&M 20 /min Kalpana Justina blood pressure, diastolic 94 mm[Hg] kenya Horn blood pressure, systolic 121 mm[Hg] She rama Justina oxygen saturation, oximetry 97 % Kalpana Horn weight E&M 118 [lb_av] Kalpana Horn height E&M 65 [in_i] Kalpana Horn blood pressure, cuff size regular kenya Horn Body Mass Index (Ratio) 19.13 kg/m2 Yosi Robles blood pressure, diastolic -1 mm[Hg] Li nkLogic blood pressure, systolic 158 mm[Hg] Ariela kLogic pulse rate 60 /min Anni Cale blood pressure, diastolic 98 mm[Hg] An reta Madsen blood pressure, systolic 158 mm[Hg] Mariel henry Cale oxygen saturation, oximetry 99 % Anni Cale weight E&M 115 [lb_av] Anni Cale blood pressure, cuff size large Selena mcduffie Cale height E&M 65 [in_i] Anni Cale Body Mass Index (Ratio) 19.13 kg/m2 Sabino Freire MD blood pressure, diastolic 90 mm[Hg] Mi reza Huber blood pressure, systolic 139 mm[Hg] Perez helle Huber oxygen saturation, oximetry 98 % Rosanne Huber pulse rate 62 /min Rosanne patel weight E&M 115 [lb_av] Rosanne patel respiratory rate E&M 16 /min Belgica Huber blood pressure, cuff size large Caroline reza Huber height E&M 65 [in_i] Rosanne patel Body Mass Index (Ratio) 18.97 kg/m2 Sabino Freire MD blood pressure, diastolic 89 mm[Hg] Li nkLogderek blood pressure, systolic 155 mm[Hg] Ariela kLogic blood pressure, diastolic 89 mm[Hg] Mi reza Mayo blood pressure, systolic 155 mm[Hg] Perez helle Mayo oxygen saturation, oximetry 96 % Rosanne Huber pulse rate 79 /min Rosanne patel height E&M 65 [in_i] Rosanne patel weight E&M 114 [lb_av] Rosanne patel blood pressure, cuff size large Caroline cobb Mayo respiratory rate E&M 16 /min Belgica Huber ALLERGIES Allergy Name Onset Date Reaction Criticality Status NITRATE chest pain, fatigue High Criticality active RESULTS Date Observation Value Provider Reference Range Interpretation Location 4 calcium, serum 9.2 mg/dL [facility] 8.7-10.3 4 carbon dioxide, venous blood 25 mmol/L [facility] 20-29 4 chloride, serum 97 mmol/L [facility] 96-106 4 potassium, serum 4.5 mmol/L [facility] 3.5-5.2 4 sodium, serum 134 mmol/L [facility] 763-081 2370/02/2 4 urea nitrogen/creatinine ratio, serum 14 [facility] 12-28 4 creatinine, serum 0.83 mg/dL [facility] 0.57-1.00 4 urea nitrogen, blood 12 mg/dL [facility] 8-27 4 blood glucose, random 85 mg/dL [facility] 70-99 4 B-type natriuretic peptide 28.4 pg/mL [facility] 0.0-100.0 4 alanine aminotransferase (SGPT), serum 12 1/L [facility] 0-32 4 aspartate aminotransferase (SGOT), serum 17 1/L [facility] 0-40 4 alkaline phosphatase, serum 81 1/L [facility] 44-121 4 bilirubin, serum, total 0.3 mg/dL [facility] 0.0-1.2 4 albumin/globulin ratio, serum 2.2 [facility] 1.2-2.2 4 globulin, serum 2.1 [facility] 1.5-4.5 4 albumin, serum 4.6 g/dL [facility] 3.9-4.9 4 protein, total, serum 6.7 g/dL [facility] 6.0-8.5 4 calcium, serum 10.0 mg/dL [facility] 8.7-10.3 4 carbon dioxide, venous blood 24 mmol/L [facility] 20-29 4 chloride, serum 98 mmol/L [facility] 96-106 4 potassium, serum 5.8 mmol/L [facility] 3.5-5.2 High 4 sodium, serum 137 mmol/L [facility] 395-636 1035/02/1 4 urea nitrogen/creatinine ratio, serum 15 [facility] 12-28 4 creatinine, serum 0.80 mg/dL [facility] 0.57-1.00 4 urea nitrogen, blood 12 mg/dL [facility] 8-27 4 blood glucose, random 62 mg/dL [facility] 70-99 Low 4 basophil count, absolute 0.0 x10E3/uL [facility] 0.0-0.2 4 Eosinophil Absolute Count 0.1 X10E3/UL [facility] 0.0-0.4 4 monocyte count, blood, automated 0.3 X10E3/UL [facility] 0.1-0.9 4 lymphocyte count, blood, automated 1.1 X10E3/UL [facility] 0.7-3.1 4 Absolute Neutrophils 1.5 X10E3/UL [facility] 1.4-7.0 4 basophils as percent of blood leukocytes 1 % [facility] Not Estab. 4 eosinophils as percent of blood leukocytes 3 % [facility] Not Estab. 4 monocytes as percent of blood leukocytes 10 % [facility] Not Estab. 4 lymphocytes as percent of blood leukocytes 36 % [facility] Not Estab. 4 neutrophils as percent of blood leukocytes 50 % [facility] Not Estab. 4 platelet count 276 X10E3/UL [facility] 891-361 6126/02/1 4 red blood cell distribution width 11.5 % [facility] 11.7-15.4 Low 4 mean corpuscular hemoglobin concentration, RBC 33.9 G/DL [facility] 31.5-35.7 4 mean corpuscular hemoglobin, RBC 30.5 pg [facility] 26.6-33.0 4 mean corpuscular volume, RBC 90 fL [facility] 79-97 4 hematocrit, blood 39.5 % [facility] 34.0-46.6 4 hemoglobin, blood 13.4 g/dL [facility] 11.1-15.9 4 erythrocyte (RBC) count 4.40 X10E6/UL [facility] 3.77-5.28 4 leukocyte count, blood 3.1 X10E3/UL [facility] 3.4-10.8 Low 8 calcium, serum 9.0 mg/dL [facility] 8.7-10.3 8 carbon dioxide, venous blood 24 mmol/L [facility] 20-29 8 chloride, serum 99 mmol/L [facility] 96-106 8 potassium, serum 4.5 mmol/L [facility] 3.5-5.2 8 sodium, serum 134 mmol/L [facility] 464-313 2639/10/2 8 urea nitrogen/creatinine ratio, serum 21 [facility] 12-28 8 creatinine, serum 0.75 mg/dL [facility] 0.57-1.00 8 urea nitrogen, blood 16 mg/dL [facility] 8-27 8 blood glucose, random 94 mg/dL [facility] 70-99 HISTORY OF MEDICATION USE Medication Status Instructions Dates Provider Indications Com ments ranolazine 1,000 mg tablet extended release 12 hr active TAKE 1 BY MOUTH TWICE DAILY Marley Najera lisinopril 5 mg tablet active Take 1 tablet by mouth once a day Marley Najera aspirin 81 mg tablet,delayed release (DR/EC) active every other day Nissa Dias NP ranolazine 1,000 mg tablet extended release 12 hr completed TAKE 1 TABLET BY MOUTH TWICE A DAY - Marley Najera metoprolol tartrate 25 mg tablet completed Take one tab the night before the ct, take one tab an hour and a half before the ct - Nissa Dias NP lisinopril 5 mg tablet completed TAKE 1 TABLET BY MOUTH EVERY DAY - Marley Najera Ranexa 500 mg tablet extended release 12 hr completed Take 1 tablet by mouth twice a day - Nissa Dias NP isosorbide mononitrate 30 mg tablet extended release 24 hr completed - Joie Machado pravastatin 20 mg tablet completed - Joie Machado ezetimibe 10 mg tablet completed - Rosanne Huber isosorbide mononitrate 30 mg tablet extended release 24 hr completed - Rosanne Huber metoprolol succinate 25 mg tablet extended release 24 hr completed - Rosanne Huber lisinopril 5 mg tablet completed - Rosanne Huber diltiazem HCl 120 mg capsule,extende d release 24hr completed - Rolan Freire MD pravastatin 20 mg tablet active Take 1 tablet by mouth once a day Marley Najera SOCIAL HISTORY Date Observation Value Provider number of grandchildren Rolan Freire MD cigarette use yes Rolan Freire MD smoking status Former smoker Rolan matt MD cigarette use yes [facility] smoking status Former smoker Melissa [place] cigarette use yes Melissa Camp smoking status Former smoker [facility] social history reviewed E&M revi ewed - no changes required Rolan Freire MD social history E&M S moking History: Gabrielle galarza is a former smoker. Rolan Freire MD cigarette use yes Nissa Delvalle er FISH INSPECTOR smoking status Former smoker Nissa taylorer FISH INSPECTOR social history E&M S moking History: Gabrielle galarza has never smoked. Rolan Freire MD social history reviewed E&M revi ewed - no changes required Rolan Freire MD smoking status Never smoker Anni Cale Underweight no Rolan Freire MD social history E&M S moking History: Gabrielle galarza has never smoked. Rolan Freire MD social history reviewed E&M revi ewed - no changes required Rolan Freire MD smoking status Never smoker Rosanne Cuevas and Underweight yes Rolan Freire MD social history E&M S moking History: Gabrielle galarza has never smoked. Rolan Freire MD social history reviewed E&M revi ewed - no changes required Rolan Freire MD smoking status Never smoker Rosanne Cuevas and INSURANCE PROVIDERS Payer name Policy type / Coverage type [place] red democrat ID [facility] [id number] ADVANCE DIRECTIVES Name Date DISCUSSED - NO DECISION MADE TREATMENT PLAN Date Name Performer [id number],B,improved. Jamee Hydepapa FISH INSPECTOR [id number],B,improved. Jamee Gnogmadison FISH INSPECTOR [id number],C, pt states that since starting ranexa her SOB has improved. She continues to have intermittent chest discomfort, 'sometimes it feels like a tightness, sometimes iit feels like burning, somtimes its a pain in my heart.' she states it doesn't last long. occurs with exertion and at rest. pt also reports intermittent dizziness, sometimes with position changes, other times just while waliking. pt denies any orthopnea, PND or syncope. coronary cta: 1. Left main artery is normal. 2. Left anterior descending artery is tortuous wrap around vessel. Mid segment has calcified plaque without any stenosis. Large diagonal branch without any stenosis. 3. Circumflex artery has calcified plaque with 0-25% stenosis. 4 . Right coronary artery is dominant vessel. Proximal RCA has greater than 70% stenosis (stenosis may be appearing more s evere due to motion artifact). cath at [facility] in 08/2022 and cath at [facility] 09/2022. able to find 08/2022 cath in [facility]: 30-40% mid-distal LAD, IFR was attempted but was unsuccessful. unable to locate or review cath from [facility]. options discussed including medical management vs repeat cath. in agreement with attempting increased dose of ranexa to 1000mg BID for 1 month. if symptoms continue despite increased dose, recommendation is for repeat cardiac cath. Nissa Dias FISH INSPECTOR [id number],B, Yosi Museza i [id number],C,Improved Yosi Grahami [id number],C,Pt denies any CP or SOB. Yosi Robles [id number],C,R emains SOB. No improvement from medications. Will discontinue cardizem and switch to Ranexa 500 mg BID. Rolan Freire MD [id number],C,C ontinues to have lightheadedness. Has been monitoring BP at home and says it is sometimes elevated. Rolan Freire MD [id number],C,N o CP reported today, but symptoms of tiredness, fatigue, and lightheadedness have persisted. She has previously not responded well to nitrate or calcium channel blockers. Rolan Freire MD [id number],C,L ightheadedness, tiredness, and fatigue which is persistant, the etiology of which is unclear. Rolan Freire MD [id number],C,M ay benefit from a PFT and a 6 min walk. Rolan Freire MD [id number],C,S ymptoms of tiredness, fatigue, chest pain, lightheadedness have persisted. Number of investigations including two [facility] caths have been done. The likely etiology could be small vessel disease or coronary vasospasm. Has not responded well to nitrate or calcium channel bloackers. We will obtain the results from the two hospitals as well as the blood tests before changing medications. Rolan Freire MD Cardiology: I nfrequent chest pains completely resolved on ranexa 1000mg BID. Exetional tolerance stable. No new symptoms. Kamilah ely has tried metoprolol, nitrates, and diltiazem in [place] past for amnagement of her chest pain with no improvement. Ranexa has certainly resolved her CP but has made her more functional. She should continue on this medication. Rolan Freire MD Cardiology: K + 5.8 in August. Advised to avoid potassium rich foods. Rolan Freire MD Cardiology: R Esolved. Rolan Freire MD Cardiology: I nfrequent chest pains completely resolved on ranexa 1000mg BID. Exetional tolerance stable. No new symptoms. Rolan Freire MD Cardiology: N o recurrence Rolan Freire MD Cardiology:We discus sed using nitro patch but she cannot tolerate nitrates due to sxs of chest pain and fatigue. Will continue current medical management as her sxs are infrequent and inconsistent, burning sensation may be acid reflux related. Will consider cardiac cath in future if sxs worsen. She has had cath in the 08/2022 which showed moderate stenosis in mid RCA which could not be assessed further with IFR, mild CAD in LAD and LCX. CTA coronary was done 04/2023 which revealed RCA is dominant vessel. Proximal RCA has greater than 70% stenosis (stenosis may be appearing more severe due to motion artifact). Rolan Freire MD Cardiology:Will order labs at th is time Rolan Freire MD Cardiology:No recurr ence Rolan Freire MD Cardiology:In 120s [facility] per pt. Has started drinking electrolytes. Will check labs Rolan Freire MD Cardiology:Increased Ranolazine to 1000 mg bid at last visit. Pt had one episode of sharp CP that lasted one hour with associated lightheadedness and dipahoresis. Was treated for hyponatremia and has been drinking electrolyte drinks. No recurrence since episode. Will continue with current medication regime. Her updated medication list for this problem includes: Aspirin 81 Mg Tablet,delayed Release (dr/ec) (Aspirin) ..... Every other day Ranolazine 1,000 Mg Tablet Extended Release 12 Hr (Ranolazine) ..... Take 1 tablet by mouth twice a day Lisinopril 5 Mg Tablet (Lisinopril) ..... Take 1 tablet by mouth once a day as needed for bp greater than 120/80 Rolan Freire MD Cardiology:improved. Nissa pineda NP Cardiology:improved. Nissa pineda NP Cardiology: pt state s that since starting ranexa her SOB has improved. She continues to have intermittent chest discomfort, 'sometimes it feels like a tightness, sometimes iit feels like burning, somtimes its a pain in my heart.' she states it doesn't last long. occurs with exertion and at rest. pt also reports intermittent dizziness, sometimes with position changes, other times just while waliking. pt denies any orthopnea, PND or syncope. coronary cta: 1. Left main artery is normal. 2. Left anterior descending artery is tortuous wrap around vessel. Mid segment has calcified plaque without any stenosis. Large diagonal branch without any stenosis. 3. Circumflex artery has calcified plaque with 0-25% stenosis. 4 . Right coronary artery is dominant vessel. Proximal RCA has greater than 70% stenosis (stenosis may be appearing more s evere due to motion artifact). cath at [facility] in 08/2022 and cath at [facility] 09/2022. able to find 08/2022 cath [facility]: 30-40% mid-distal LAD, IFR was attempted but was unsuccessful. unable to locate or review cath from [facility]. options discussed including medical management vs repeat cath. in agreement with attempting increased dose of ranexa to 1000mg BID for 1 month. if symptoms continue despite increased dose, recommendation is for repeat cardiac cath. Nissa Dias NP Cardiology Yosi Robles Cardiology:Improved Yosi Graham i Cardiology:Pt denies any CP or S OB. Yosi Grahamlaw Cardiology:Remains S OB. No improvement from medications. Will discontinue cardizem and switch to Ranexa 500 mg BID. Rolan Freire MD Cardiology:Continues to have lightheadedness. Has been monitoring BP at home and says it is sometimes elevated. Rolan Freire MD Cardiology:No CP rep orted today, but symptoms of tiredness, fatigue, and lightheadedness have persisted. She has previously not responded well to nitrate or calcium channel blockers. Rolan Freire MD Cardiology:Lighthead edness, tiredness, and fatigue which is persistant, the etiology of which is unclear. Rolan Freire MD Cardiology:May benefit from a PF T and a 6 min walk. Rolan Freire MD Cardiology:Symptoms of tiredness, fatigue, chest pain, lightheadedness have persisted. Number of investigations including two [facility] caths have been done. The likely etiology could be small vessel disease or coronary vasospasm. Has not responded well to nitrate or calcium channel bloackers. We will obtain the results from the two hospitals as well as the blood tests before changing medications. Rolan Freire MD Date Name BASIC METABOLIC PANE L W/EGFR CBC (INCLUDES DIFF/P LT) COMPREHENSIVE METABO LIC PANEL, W/EGFR B TYPE NATRIURETIC P EPTIDE (BNP) CT Angio Coronaries BASIC METABOLIC PANE L W/EGFR HISTORY OF PROCEDURES Procedure Date Procedure Name Provider Procedure Notes S tatus Complex e/m visit add on Rolan Freire MD completed EKG Rolan Freire MD complet ed Schedule Followup Rolan Freire MD [address] Freire completed EKG Rolan Freire MD complet ed LUIS FERNANDO Freire MD complet ed LUIS FERNANDO Freire MD complet ed
--- OUTSIDE RECORDS SUMMARY | 2024-11-28 08:53 | XMS_ITS | Encounter Summary ---
Author Organization [facility] Address [address] [place] [address] Care Team Providers Care Material Handling Equipment Stevedore Name Role Phone Corwin Handley MD Unavailable [phone] Moises Galloway MD Primary Care Provider [phone] Michael German MD Primary Care Provider [phone] Encounter Details Date Type Department Care Team (Late st Contact Info) Description 05/18/2018 Abstract [facility] at [address] [id number] Josefa Yost MA Social History Tobacco Use Types Packs/Day Years Used Date Smoking Tobacco: Former Cigarettes Q uit: 2013 Smokeless Tobacco: Never Alcohol Use Standard Drinks/Week Comments Yes 0 (1 standard drink = 0.6 oz pure alcohol) 1 glass of wine with supper daily Comments Unknown Sex and Gender Information Value Date Recorded Sex Assigned at Not on file Legal Sex Female 8:29 PM CDT Gender Identity Not on file Sexual Orientation Not on file documented as of this encounter Plan of Treatment Not on file documented as of this encounter Procedures Procedure Name Priority Date/Time Associated Diagnosis Comments CBC (OUTSIDE LAB) Routine 02/23/2018 COMPREHENSIVE METABOLIC PANEL Routine 02/23/2018 LIPID PANEL Routine 02/23/2018 THYROID STIM HORMONE TSH Routine 02/23/2018 CK (CPK) Routine 02/23/2018 CK (CPK) Routine 02/23/2018 CBC (OUTSIDE LAB) Routine 11/03/2016 COMPREHENSIVE METABOLIC PANEL Routine 11/03/2016 documented in this encounter Results * THYROID STIM HORMONE, TSH (02/23/2018) TSH 1.52 02/23/2018 [facility] LABORATORY Edited Resul t - Final * LIPID PANEL (02/23/2018) Pathologist [facility] CHOLESTEROL 218 HDL 69 TRIGLYCERIDES 75 LDL (CALCULATED) 134 02/23/2018 [facility] LABORATORY Edited Resul t - Final * CK (CPK) (02/23/2018) CPK 56 02/23/2018 [facility] Final Result * CK (CPK) (02/23/2018) CPK Comment:error deleted 02/23/2018 [facility] Edited Resul t - Final * COMPREHENSIVE METABOLIC PANEL (02/23/2018) SODIUM S/P/B 138 POTASSIUM S/P/B 3.8 CO2 26 CHLORIDE S/P/B 102 GLUCOSE 101 mg/dL CALCIUM S/P/B 9.4 BUN 11 CREATININE S/P/B 0.81 0.5 - 1.0 EGFR AFR. AMER. >90 <=90 EGFR NON-AFR. AMER. 82 <=90 ALKALINE PHOSPHATASE S/P/B 135 ALT 16 AST 15 BILIRUBIN TOTAL S/P/B 0.4 ALBUMIN S/P/B 3.8 3.5 - 5.0 TOTAL PROTEIN S/P/B 8.0 02/23/2018 [facility] LAB[facility] Final Result * CBC (OUTSIDE LAB) (02/23/2018) WBC 5.4 HGB 15.5 HCT 45.7 PLT 234 02/23/2018 [facility] LAB-OUTSIDE/ABSTRACTED Edite d Result - Final * CBC (OUTSIDE LAB) (11/03/2016) WBC 5.9 HGB 13.8 HCT 42.3 PLT 236 11/03/2016 us [facility] LAB-OUTSIDE/ABSTRACTED Final Result * COMPREHENSIVE METABOLIC PANEL (11/03/2016) SODIUM S/P/B 139 POTASSIUM S/P/B 5.3 CHLORIDE S/P/B 159 CO2 29 CREATININE S/P/B 0.84 0.5 - 1.0 BUN 13 GLUCOSE 90 mg/dL CALCIUM S/P/B 9.4 EGFR AFR. AMER. >60 <=90 EGFR NON-AFR. AMER. >60 <=90 AST 15 GPT/ALT 11 ALK PHOS 103 ALBUMIN S/P/B 4.3 3.5 - 5.0 TOTAL PROTEIN S/P/B 7.3 11/03/2016 us Doc [facility] LABORAT[facility] Edited Resul t - Final documented in this encounter Visit Diagnoses Not on filedocumented in this encounter Care Teams Material Handling Equipment Stevedore Relationship Specialty [place] [address] [place] [address] PCP - General FAMILY PRACTICE 02/16/18 05/18/18 Michael German MD [address] [place] [address] PCP - General FAMILY PRACTICE 05/19/18 Corwin Handley MD [facility] [address] [place] [address] [employer] W[employer] Operator INTERVENTIONAL CARDIOLOGY 02/16/18 documented as of this encounter
--- OUTSIDE RECORDS SUMMARY | 2024-11-28 08:54 | XMS_ITS | Clinical Summary ---
Author Organization [facility] Address [facility] [place] [address] Care Team Providers Care Starch Cooker Name Role Phone Corwin Handley MD Unavailable [phone] Michael German MD Primary Care Provider [phone] Allergies No known active allergies Medications aspirin 81 MG tablet Take 1 tablet (81 mg total) by mouth daily. 02/25/2018 Active Multiple Vitamins-Minera ls (DAILY MULTIVITAMIN) Cap Take 1 capsule by mouth daily. 02/25/2018 Active ezetimibe (ZETIA) 10 MG tablet Take 1 tablet (10 mg total) by mouth nightly at bedtime. 08/04/2022 Active coenzyme Q-10 (CO Q-10) 100 MG capsule Take 1 capsule (100 mg total) by mouth daily. Active pravastatin (PRAVACHOL) 20 MG tablet Take 1 tablet (20 mg total) by mouth nightly at bedtime. 90 tablet 1 11/20/2022 Active dilTIAZem CD (CARDIZEM CD) 120 MG 24 hr capsule Take 1 capsule (120 mg total) by mouth daily. 30 capsule 3 11/30/2022 Active Active Problems Problem Noted Date Diagnosed Date Dyslipidemia 10/15/2022 Coronary artery disease invo [place]ving [place] coronary artery of [place] heart without angina pectoris 10/05/2022 Heart palpitations 10/05/2022 Chest pain 09/28/2022 Hypertension, essential Immunizations Immunization Administration Dates Next Due Influenza (Generic) 05/19/2022 Family History Medical History Relation Comments Heart Attack Father Relation Status Comments Brother 1 Alive Brother 2 Alive Brother 3 Alive Father (Age 67) Maternal Grandfather (Age 100) Maternal Grandmother (Age 70) Mother (Age 83) Paternal Grandfather (Age 84) Paternal Grandmother (Age 75) Sister 1 Alive Sister 2 Alive Social History Tobacco Use Types Packs/Day Years Used Date Smoking Tobacco: Former Cigarettes Q uit: 07/2013 Smokeless Tobacco: Never Tobacco Cessation:Counseling Given: Not Answered Alcohol Use Standard Drinks/Week Comments Yes 11.7 (1 standard dri nk = 0.6 oz pure alcohol) 1 glass of wine with supper daily Humiliation, Afraid, Rape, and Kick questionnair e Answer Date Recorded Within the last year, have y ou been afraid of your partner or ex-partner? Patient declined 10/06/2022 Within the last year, have y ou been humiliated or emotionally abused in other ways by your partner or ex-partner? Patient declined 10/06/2022 Within the last year, have y ou been kicked, hit, slapped, or otherwise physically hurt by your partner or ex-partner? Patient declined 10/06/2022 Within the last year, have y ou been raped or forced to have any kind of sexual activity by your partner or ex-partner? Patient declined 10/06/2022 Social Connection and Isolation Panel [NHANES] A nswer Date Recorded In a typical week, how many times do you talk on the phone with family, friends, or neighbors? Once a week 10/06/2022 How often do you get togethe r with friends or relatives? Once a week 10/06/2022 How often do you attend orthodox or holiness serv ices? Patient declined 10/06/2022 Do you belong to any clubs o r organizations such as orthodox groups, unions, fraternal or athletic groups, or school groups? Patient declined 10/06/2022 How often do you attend meet ings of the clubs or organizations you belong to? Patient declined 10/06/2022 Are you , , di vorced, , never , or living with a partner? Patient declined 10/06/2022 AUDIT-C Answer Date Recorded Q1: How often do you have a drink containing alcohol? Never 10/06/2022 Q2: How many drinks containi ng alcohol do you have on a typical day when you are drinking? Patient does not drink 3 Q3: How often do you have si x or more drinks on one occasion? Never 10/06/2022 Overall Financial Resource Strain (CARDIA) Answe r Date Recorded How hard is it for you to pa y for the very basics like food, housing, medical care, and heating? Not hard at all 10/06/2022 [facility] - Occupational Stress Questionnaire Answer Date Recorded Do you feel stress - tense, restless, nervous, or anxious, or unable to sleep at night because your mind is troubled all the time - these days? Not at all 10/06/2022 Hunger Vital Sign Answer Date Recorded Within the past 12 months, y ou worried that your food would run out before you got the money to buy more. Never true 10/07/19 Within the past 12 months, t he food you bought just didn't last and you didn't have money to get more. Never true 10/06/2022 PRAPARE - Transportation Answer Date Re corded In the past 12 months, has l ack of transportation kept you from medical appointments or from getting medications? No 09/17 In the past 12 months, has l ack of transportation kept you from meetings, work, or from getting things needed for daily living? No 10/06/2022 Housing Stability Vital Sign Answer Edy e Recorded In the last 12 months, was t here a time when you were not able to pay the mortgage or rent on time? No 10/06/2022 In the last 12 months, how many places have you lived? 1 10/06/2022 In the last 12 months, was t here a time when you did not have a steady place to sleep or slept in a jail (including now)? No 10/06/2022 Comments No Sex and Gender Information Value Date Recorded Sex Assigned at Not on file Legal Sex Female 8:29 PM CDT Gender Identity Not on file Sexual Orientation Not on file Last Filed Vital Signs Vital Sign Reading Time Taken Comments Blood Pressure 138/86 11/20/2022 1:57 PM CDT Pulse 74 11/20/2022 1:57 PM CDT Temperature 36.6 C (97.9 F) 10/08/2022 12:28 PM CDT Respiratory Rate 16 10/08/2022 12:28 PM CDT Oxygen Saturation 99% 11/20/2022 1:57 PM CDT Inhaled Oxygen Concentration - - Weight 52.9 kg (116 lb 9.6 oz) 11/20/2022 1:57 P M CDT Height 165.1 cm (5' 5 ) 11/20/2022 1:57 PM CDT Body Mass Index 19.4 11/20/2022 1:57 PM CDT Plan of Treatment Health Maintenance Due Date Last Done Comments ASCVD Statin 1962 Cervical Cancer Screening Pa p Smear (Age 30 to 64) Every 3 Years 1962 Colorectal Cancer Screening Colonoscopy (10 Years) 1962 Annual Physical 1965 Hepatitis C 1980 DTaP, Tdap and Td Vaccines ( 1 - Tdap) 1981 Pneumococcal Vaccine: 50+ Years (1 of 2 - PCV) 1981 Cervical Cancer Screening Pa p with HPV Testing (Age 30 to 64) Every 5 Years 1992 Cervical Cancer Screening wi th HPV 1992 Mammogram Screening 2002 Zoster Vaccines (1 of 2) 2012 RSV Immunization or 60+ Years (1 - Risk 60-74 years 1-dose series) 2022 ASCVD LDL 09/29/2023 09/28/2022, 02/23/2018 COVID-19 Vaccine (4 - 2023-2 5 season) 2024 05/19/2022, 02/28/2021, 02/07/2021 Meningococcal B Vaccine Aged Out No l onger eligible based on patient's age to complete this topic Meningococcal Vaccine Aged Out No amber tierra eligible based on patient's age to complete this topic RSV Immunizations Under 20 Months Aged Out No longer eligible b ased on patient's age to complete this topic Goals Goal Patient Goal Type Associated Problems Recent Progress Patient-Stated? Author Family - family caregiver with be involved in care transitions and discharge planning Lifestyle No Bev Mcdonald, electronics specialist Procedure Name Priority Date/Time Associated Diagnosis Comments LIPID PANEL STAT 09/28/2022 12:30 AM CDT from Last 3 Months or Most Recently Relevant to Health Maintenance Results * (ABNORMAL) LIPID PANEL (09/28/2022 12:30 AM CDT) CHOLESTEROL 198 <200 MG/DL 09/28/2022 5:02 AM CDT [facility] TRIGLYCERIDES 93 <150 MG/DL 09/28/2022 5:02 AM CDT [facility] HDL 66 >40.0 MG/DL 09/28/2022 5:02 AM CDT [facility] LDL (CALCULATED) 113(H) <100 MG/DL 09/28/2022 5:02 AM CDT [facility] NON HDL CHOLESTEROL 132(H) <130 MG/DL 09/28/2022 5:02 AM CDT [facility] CHOL/HDL RATIO 3.0 0.0 - 4.5 09/28/2022 5:02 AM CDT [facility] VLDL CALCULATION 19 5 - 55 MG/DL 09/28/2022 5:02 AM CDT [facility] LIPID INTERPRETATION 09/28/2022 5:02 AM CDT [facility] Comment: NIH CONCENSUS REPORT RECOMMENDATIONS: ADULT CHILD LOW RISK: CHOLESTEROL <200 <170 TRIGLYCERIDE <150 --- HDL >=60 --- LDL <100 <110 BORDERLINE: CHOLESTEROL 200-239 170-199 TRIGLYCERIDE 150-199 --- HDL 40-59 --- LDL 100-159 110-129 HIGH RISK: CHOLESTEROL >=240 >=200 TRIGLYCERIDE >=200 --- HDL <40 --- LDL >=160 >=130 09/28/2022 12:3 0 AM CDT Timmy Boswell DO LABORATORY Final Result [facility] [address] [place] [address], [place] [phone] from Last 3 Months or Most Recently Relevant to Health Maintenance Insurance [facility] Advance Directives * Full Code (Latest Code Status on File) Date Activated Date Inactivated Comments 10/07/2022 4:52 PM 10/08/2022 3:59 PM * Full Code Date Activated Date Inactivated Comments 10/06/2022 6:11 PM 10/07/2022 4:52 PM * Full Code Date Activated Date Inactivated Comments 09/28/2022 1:44 AM 09/29/2022 1:37 PM Care Teams Starch Cooker Relationship Specialty Start Date End Date Michael German MD [address] [place] [address] PCP - General FAMILY PRACTICE 05/19/18 Corwin aHndley MD [facility] [address] [place] [address] Iris Tar Processing Technician INTERVENTIONAL CARDIOLOGY 02/16/18
--- OUTSIDE RECORDS SUMMARY | 2024-11-28 08:54 | XMS_ITS | Encounter Summary ---
Author Organization [facility] Address [address] [place] [address] Care Team Providers Care Civil Laboratory Technician Name Role Phone Corwin Handley MD Unavailable [phone] Michael German MD Primary Care Provider [phone] Encounter Details Date Type Department Care Team (Late st Contact Info) Description 10/12/2022 Hospital Orders Only [facility], [facility] [address], [place] [id number] Pretty Saha MD Three [facility]. [facility] [address], [place] [id number] Social History Tobacco Use Types Packs/Day Years Used Date Smoking Tobacco: Former Cigarettes Q uit: 07/2013 Smokeless Tobacco: Never Alcohol Use Standard Drinks/Week Comments Yes 11.7 [...] week 10/06/2022 How often do you attend taoist or mosque serv ices? Patient declined 10/06/2022 Do you belong to any clubs o r organizations such as taoist groups, unions, fraternal or athletic groups, or [...] you are drinking? Patient does not drink Q3: How often do you have si x or more drinks on one occasion? Never 10/06/2022 Overall Financial Resource Strain (CARDIA) Answe r Date Recorded How hard is it for you to pa y for the very basics like food, housing, medical care, and heating? Not hard at all 10/06/2022 [facility] Occupat ional Health - Occupational Stress [...] money to buy more. Never true 10/07/19 23 Within the past 12 months, t he [...] place to sleep or slept in a senior living (including now)? No 10/06/2022 Comments No Sex and Gender Information Value Date Recorded Sex Assigned at Not on file Legal Sex Female 8:29 PM CDT Gender Identity Not on file Sexual Orientation Not on file COVID-19 Exposure Response Date Recorded In the last 10 days, have yo u been in contact with someone who was confirmed or suspected to have Coronavirus/COVID-19? No / Unsure 10/15/2022 9:59 AM CDT documented as of this encounter Functional Status * Are you deaf or do you have serious difficulty hearing Answer Date of Assessment Author Status Yes 10/06/2022 10:00 PM CDT Anna Caldwell RN Active * Are you blind or do you have serious difficulty seeing, even when wearing glasses? Answer Date of Assessment Author Status No 10/06/2022 10:00 PM CDT Anna Caldwell RN Active * Do you have serious difficulty walking or climbing stairs? Answer Date of Assessment Author Status No 10/06/2022 10:00 PM SERENAT Anna Caldwell RN Active * Do you have difficulty dressing or bathing? Answer Date of Assessment Author Status No 10/06/2022 10:00 PM CDT Anna Caldwell RN Active * Because of a physical, mental, or emotional condition, do you have difficulty doing errands alone such as visiting a doctor's office or shopping? Answer Date of Assessment Author Status No 10/06/2022 10:00 PM CDT Anna Caldwell RN Active documented as of this encounter Mental Status * Because of a physical, mental, or emotional condition, do you have serious difficulty concentrating, remembering, or making decisions? Answer Entry Date Author Status No 10/06/2022 10:00 PM CDT Anna Caldwell, RN Active documented in this encounter Plan of Treatment Not on file documented as of this encounter Goals Goal Patient Goal Type Associated Problems Recent Progress Patient-Stated? Author Family - family caregiver with be involved in care transitions and discharge planning Lifestyle No Bev Mcdonald, DARSHAN documented as of this encounter Visit Diagnoses Not on filedocumented in this encounter Care Teams Civil Laboratory Technician Relationship Specialty Start Date End Date Michael German MD [address] [address] PCP - General FAMILY PRACTICE 05/19/18 Corwin Handley MD [facility]. [facility] [address] [place] [address] Mcpherson Ice Delivery Driver INTERVENTIONAL CARDIOLOGY 02/16/18 documented as of this encounter
--- OUTSIDE RECORDS SUMMARY | 2024-11-28 08:54 | XMS_ITS | Patient Health Record ---
Author Organization [facility] Address [address] [facility] [address] [address] Care Team Providers Care Paper Deliverer Name Role Phone TASHA HILTON Unavailable [phone] Reason For Referral No Information Medications Medication SIG (Take, Route, Frequency, Duration) Notes Start Date End Date Status Aspirin 81 81 MG 1 tablet Orally Once a day Active Pravastatin Sodium 20 MG 1 tablet Orally Once a day Active Pravastatin Sodium 20 MG 1 tablet Orally Once a day for 30 days 10/19/2024 Active Multivitamin Active Lisinopril 5 MG 2 tablets Orally Once a day Active Ranolazine ER 1000 MG 1 tablet Orally Twice a day Active Fish Oil Active Calcium + D Active Collagen Active Vitamin E Active Problems Problem Type SNOMED Code ICD Code Onset Dates Problem Status W/U Status Risk Notes Problem Hyperlipidemia (23117854) Hyperlipidemia, unspecified (E78.5) Active confirmed Problem 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) Active confirmed Problem Atherosclerotic heart disease of [place] coronary artery without angina pectoris ([id number]) Atherosclerotic heart disease [place] coronary artery without angina pectoris (I25.10) Active confirmed Vital Signs Heart Rate 68 /min 09/22/2024 Blood pressure diastolic 78 mm Hg 09/22/2024 Height 62 in 09/22/2024 Blood pressure systolic 134 mm Hg 09/22/2024 Weight 137 lbs 09/22/2024 BMI 25.05 kg/m2 09/22/2024 Encounters Encounter Location Date Provider Diagnosis [address] [address] 09/22/2024 TASHA HILTON Atherosclerotic hear t disease of [place] coronary artery without angina pectoris I25.10 ; Hypertension secondary to endocrine disorders I15.2 and Hyperlipidemia, unspecified E78.[address] [address] 09/25/2024 TASHA HILTON Assessments Encounter Date Diagnosis (ICD Code) Assessment Notes Treatment Notes Treatment Clinical Notes Section Notes 09/22/2024 Hypertension secondary to endocrine disorders (ICD-10 - I15.2) 09/22/2024 Atherosclerotic heart disease of [place] coronary artery without angina pectoris (ICD-10 - I25.10) Stable cv status,med rx,review old records 09/22/2024 Hyperlipidemia, unspecified (ICD-10 - E78.5) Plan Of Treatment Next Appt Details Provider Name:TASHA NOLAND, 01/26/2025 09:00:00 AM, [address] [facility], [address], [address], Insurance Providers Payer Name Payer Address Payer Phone Subscriber Number Group Number Insured Name Patient Relationship to Insured Coverage Start Date Coverage End Date [address] [phone] [id number] Tonya Segal Self - patient is the insured
== END 2024-11-28 08:48 | disposition home or self-care (01) ==
PROVIDERS: PCP Family Medicine
DX: Z12.31 Encounter for screening mammogram for malignant neoplasm of breast (principal)
CPT/HCPCS: 77063; 77067